=== PATIENT | female | born 1935 | race Two or more races ===

== ENCOUNTER 2019-10-24 11:51 | Outpatient (CLI) | payer OTHER | END 2019-10-24 11:59 | disposition home or self-care (01) | LOC: SONOGRAMA 11:51 | DX: N63.13 Unspecified lump in the right breast, lower outer quadrant (principal); N63.22 Unspecified lump in the left breast, upper inner quadrant ==

== ENCOUNTER 2020-04-27 06:30 | Day surgery (SDC) | payer OTHER ==
[~2020-04-27 06:30] MED LIST: ALLOPURINOL300 MG PO; ARICEPT10 MG PO; ATORVASTATIN CA10 MG PO; DIOVAN160 M1 PO; DITROPAN XL5 MG PO; LASIX20 MG PO; MEMANTINE HCL10 MG PO; NORVASC2.5 M1 PO
== END 2020-04-27 19:00 | disposition home or self-care (01) ==
LOC: CIR.AMB 06:30
PROVIDERS: ATTEND Surgery
DX: C50.511 Malignant neoplasm of lower-outer quadrant of right female breast (principal); D05.12 Intraductal carcinoma in situ of left breast; Z20.828 Contact with and (suspected) exposure to other viral communicable diseases